=== PATIENT | female | born 1965 | race Caucasian/White ===

== ENCOUNTER 2019-11-21 16:34 | Emergency (ER) | payer BC ==
[2019-11-21] MEDS ORDERED: IPRATROPIUM/ALBUTEROL 0.5-2.5 MG/3 ML AMPUL NEB ONE (16:51)
--- NOTE | 2019-11-21 16:53 | ER Document Report ---
ED Medical Screen (RME) - General Chief Complaint: Chest Pain Stated Complaint: CHEST PAIN,DIZZINESS Time Seen by Provider: 11/21/19 16:46 Primary Care Provider: JACOBO THOMPSON CNM [Primary Care Provider] - Follow up as needed Notes: HPI: 54-year-old female with asthma history also history of high cholesterol presenting for evaluation of multiple complaints today. Patient states over the last 3 weeks she has had episodes of dizziness mostly with movement of the head and neck. No headache. Patient began having sharp episodes of chest discomfort today over the anterior chest without radiation to the neck back arms or shoulders. Does not change with position movement or deep breathing. Patient also has a sensation of tightness in the chest and shortness of breath with difficulty breathing. No fever or recent illness. Patient states that she did notice that she felt slightly "dizzy" while sitting still today as well prompting her to come in I have greeted and performed a rapid initial assessment of this patient. A comprehensive ED assessment and evaluation of the patient, analysis of test results and completion of the medical decision making process will be conducted by additional ED providers PHYSICAL EXAMINATION: GENERAL: Well-appearing, well-nourished and in no acute distress. HEAD: Atraumatic, normocephalic. EYES: sclera anicteric, conjunctiva are normal. ENT: Moist mucous membranes. NECK: Normal range of motion, no bruit LUNGS: Normal work of breathing, wheezing on expiration in all lung [place] HEART: 2+ radial pulses bilaterally, regular rate and rhythm ABD: limited by positioning for exam in triage. EXTREMITIES: no pitting or edema. No cyanosis. NEUROLOGICAL: No focal neurological deficits. Moves all extremities spontaneously and on command. PSYCH: Normal mood, normal affect. SKIN: Warm, Dry, normal turgor, no rashes or lesions noted. - Related Data Allergies/Adverse Reactions: aspirin Allergy (Verified 11/21/19 16:46) Physical Exam - Vital signs Vitals: Temp Pulse Resp BP Pulse Ox 98.2 F 69 18 166/91 H 100 11/21/19 16:44 11/21/19 16:44 11/21/19 16:44 11/21/19 16:44 11/21/19 16:44 Course - Vital Signs Vital signs: Temp Pulse Resp BP Pulse Ox 98.2 F 69 18 166/91 H 100 11/21/19 16:44 11/21/19 16:44 11/21/19 16:44 11/21/19 16:44 11/21/19 16:44 Doctor's Discharge - Discharge Referrals: JACOBO THOMPSON CNM [Primary Care Provider] - Follow up as needed
[2019-11-21 17:13] LABS: INTERNATIONAL RATION (INR) 0.92; PROTHROMBIN TIME 12.3 SEC (11.4-15.4)
[2019-11-21 17:15] LABS: ABSOLUTE BASOPHILS # (AUTO) 0.1 10^3/uL (0.0-0.2); ABSOLUTE EOSINOPHILS # (AUTO) 0.7 10^3/uL (0.0-0.6); ABSOLUTE MONOCYTES (AUTO) 0.5 10^3/uL (0.1-1.4); BASOPHILS % (AUTO) 1.4 % (0-2); EOSINOPHILS % (AUTO) 10.1 % (0-6); HEMATOCRIT 38.7 % (36.0-47.0); HEMOGLOBIN 12.7 g/dL (12.0-15.5); MEAN CORPUSCULAR HEMOGLOBIN 27.9 pg (27.0-33.4); MEAN CORPUSCULAR HGB CONC 32.9 g/dL (32.0-36.0); MEAN CORPUSCULAR VOLUME 85 fl (80-97); MONOCYTES % (AUTO) 6.9 % (3-13); PLATELET COUNT 325 10^3/uL (150-450); RED BLOOD COUNT 4.56 10^6/uL (3.72-5.28); SEGMENTED NEUTROPHILS % (AUTO) 54.6 % (42-78); TOTAL CELLS COUNTED % (AUTO) 100 %; WHITE BLOOD COUNT 7.2 10^3/uL (4.0-10.5)
--- NOTE | 2019-11-21 17:18 | RADIOLOGY REPORT (SQ) ---
EXAM DESCRIPTION: CHEST 2 VIEWS COMPLETED DATE/TIME: 11/21/2019 5:04 pm REASON FOR STUDY: cough COMPARISON: None. EXAM PARAMETERS: NUMBER OF VIEWS: two views TECHNIQUE: Digital Frontal and Lateral radiographic views of the chest acquired. RADIATION DOSE: NA LIMITATIONS: none FINDINGS: LUNGS AND PLEURA: No opacities, masses or pneumothorax. No pleural effusion. MEDIASTINUM AND HILAR STRUCTURES: No masses or contour abnormalities. HEART AND VASCULAR STRUCTURES: Heart normal size. No evidence for failure. BONES: No acute findings. HARDWARE: None in the chest. OTHER: No other significant finding. IMPRESSION: NO ACUTE RADIOGRAPHIC FINDING IN THE CHEST. TECHNICAL DOCUMENTATION: JOB ID: [id number] 2010 [employer]- All Rights Reserved Reading location - IP/workstation name: [email or web address]
[2019-11-21 17:25] LABS: ALBUMIN 4.6 g/dL (3.5-5.0); ALKALINE PHOSPHATASE 86 U/L (38-126); ANION GAP 10 (5-19); ASPARTATE AMINO TRANSFERASE 27 U/L (14-36); BILIRUBIN,DIRECT 0.3 mg/dL (0.0-0.4); BILIRUBIN,TOTAL 0.5 mg/dL (0.2-1.3); BLOOD UREA NITROGEN 21 mg/dL (7-20); CALCIUM 9.7 mg/dL (8.4-10.2); CARBON DIOXIDE 30 mmol/L (22-30); CHLORIDE 97 mmol/L (98-107); GLUCOSE 85 mg/dL (75-110); POTASSIUM 3.9 mmol/L (3.6-5.0); TOTAL PROTEIN 8.4 g/dL (6.3-8.2)
--- NOTE | 2019-11-21 17:26 | EKG REPORT ---
SEVERITY:- NORMAL ECG - SINUS RHYTHM : Confirmed by: Ian Johnson MD 21-Nov-2019 17:26:12
--- NOTE | 2019-11-21 17:38 | RADIOLOGY REPORT (SQ) ---
EXAM DESCRIPTION: CT HEAD WITHOUT COMPLETED DATE/TIME: 11/21/2019 5:23 pm REASON FOR STUDY: dizziness COMPARISON: None. TECHNIQUE: Axial images acquired through the brain without intravenous contrast. Images reviewed wi th bone, brain and subdural windows. Additional sagittal and coronal reconstructions were generated. Images stored on PACS. All CT scanners at this facility use dose modulation, iterative reconstruction, and/or weight based d osing when appropriate to reduce radiation dose to as low as reasonably achievable (ALARA). [facility]: Dose Right [facility]: CareDose [facility]: Dose Right [facility]: Teradose 4D [facility]: Surefire Social RADIATION DOSE: CT Rad equipment meets quality standard of care and radiation dose reduction techniq ues were employed. CTDIvol: 53.2 mGy. DLP: 937 mGy-cm. mGy. LIMITATIONS: None. FINDINGS: VENTRICLES: Normal size and contour. CEREBRUM: No masses. No hemorrhage. No midline shift. No evidence for acute infarction. Normal gra y/white matter differentiation. No areas of low density in the white matter. CEREBELLUM: No masses. No hemorrhage. No alteration of density. No evidence for acute infarction. EXTRAAXIAL SPACES: No fluid collections. No masses. ORBITS AND GLOBE: No intra- or extraconal masses. Normal contour of globe without masses. CALVARIUM: No fracture. PARANASAL SINUSES: Diffuse soft tissue filling the sinuses. SOFT TISSUES: No mass or hematoma. OTHER: No other significant finding. IMPRESSION: NORMAL BRAIN CT WITHOUT CONTRAST. DIFFUSE SINUS DISEASE. EVIDENCE OF ACUTE STROKE: NO. COMMENT: Quality ID # [id number]: Final reports with documentation of one or more dose reduction techniques (e.g., Automated exposure control, adjustment of the mA and/or kV according to patient size, use of iterative reconstruction technique) TECHNICAL DOCUMENTATION: JOB ID: [id number] 2010 [employer]- All Rights Reserved Reading location - IP/workstation name: [email or web address]
[2019-11-21] MEDS ORDERED: MECLIZINE HCL 25 MG TABLET PO ONE (19:24)
--- NOTE | 2019-11-21 19:26 | ER Document Report ---
ED General - General Chief Complaint: Chest Pain > 30 Stated Complaint: CHEST PAIN,DIZZINESS Time Seen by Provider: 11/21/19 16:46 Primary Care Provider: JACOBO THOMPSON CNM [CERTIFIED NURSE SUPER[employer]] - Follow up as needed Mode of Arrival: Ambulatory Information source: Patient Notes: This 54-year-old female patient comes emergency room complaining of intermittent dizziness made worse with head turning for the past 2 weeks. She has also been feeling sharp pains in her heart region. And has wheezing with shortness of breath. She noted today that she seemed to have a hard time breathing and it was more in her throat. She did go to an urgent care today and was found to have elevated blood pressure so she was sent to the emergency room. The patient uses an albuterol inhaler at least twice daily regularly for her asthma. She did receive a DuoNeb breathing treatment ordered at triage. She states that her breathing does feel better after that treatment. Patient reports she had been on Advair in the distant past, but does not use any medication like that now for her chronic asthma. She does not have a smoking history and no reason to suspect COPD. TRAVEL OUTSIDE OF THE [place] IN LAST 30 DAYS: No - Related Data Allergies/Adverse Reactions: aspirin Allergy (Verified 11/21/19 16:46) Past Medical History - General Information source: Patient - Social History Smoking Status: Never Smoker Cigarette use (# per day): No Chew tobacco use (# tins/day): No Smoking Education Provided: No Frequency of alcohol use: None Drug Abuse: None Lives with: Spouse/Significant other Family History: Hypertension Patient has suicidal ideation: No Patient has homicidal ideation: No Pulmonary Medical History: Reports: Hx Asthma Past Surgical History: Reports: Hx Abdominal Surgery - Abdominoplasty "tummy tuck"., Other - Sinus cleanout surgery and nasal polyp removal over 10 years ago. Review of Systems - Review of Systems Constitutional: No symptoms reported EENT: Sinus pressure - Some pain in the frontal ethmoid regions and the posterior head most likely due to the sphenoid sinuses, Other - Dry eyes Cardiovascular: See HPI Respiratory: See HPI, Wheezing Gastrointestinal: No symptoms reported Genitourinary: No symptoms reported Female Genitourinary: Post menopausal Musculoskeletal: No symptoms reported Skin: No symptoms reported Hematologic/Lymphatic: No symptoms reported Neurological/Psychological: See HPI - Head movement provoked dizziness Physical Exam - Vital signs Vitals: Temp Pulse Resp BP Pulse Ox 98.2 F 69 18 166/91 H 100 11/21/19 16:44 11/21/19 16:44 11/21/19 16:44 11/21/19 16:44 11/21/19 16:44 Interpretation: Hypertensive - General General appearance: Appears well In distress: None - HEENT Head: Normocephalic, Atraumatic Eyes: Normal Pupils: PERRL Nasal: Other - There does seem to be some nasal and sinus congestion with her voice suggesting sinus congestion. Pharynx: Normal Neck: Normal. No: Carotid bruit - Respiratory Respiratory status: No respiratory distress Breath sounds: Other - Faint expiratory wheeze and rhonchi with forced cough. She did just receive a DuoNeb treatment prior to being seen. Chest palpation: Tender - There is some tenderness to palpate the right and left anterior chest lee. - Cardiovascular Rhythm: Regular Heart sounds: Normal auscultation Murmur: No - Abdominal Inspection: Normal Bowel sounds: Normal Tenderness: Nontender - Back Back: Normal - Extremities General upper extremity: Normal inspection General lower extremity: Normal inspection - Neurological Neuro grossly intact: Yes Notes: There is no lateral gaze nystagmus noted. When the patient sits up and looks up and down rapidly and left right quickly, she does notice worsening of her dizziness symptoms. - Psychological Associated symptoms: Normal affect, Normal mood - Skin Skin Temperature: Warm Skin Moisture: Dry Skin Color: Normal Course - Re-evaluation Re-evalutation: 11/21/19 20:57 On reevaluation, the dizziness is only slightly improved, since she did not have nystagmus with rapid head movement, I suspect the dizzy sensation may be related to her sinus disease. She is agreeable to starting back with the Advair Diskus so that she does not have to use her rescue inhaler so much. She plans to call her ear nose and throat surgeon tomorrow to schedule an appointment for evaluation of her diffuse sinus disease. At this time the blood pressure is 135/70 which is at the patient's baseline. She does check her pressures at home frequently. - Vital Signs Vital signs: Temp Pulse Resp BP Pulse Ox 98.2 F 69 18 166/91 H 100 11/21/19 16:44 11/21/19 16:44 03/05/20 16:44 11/21/19 16:44 11/21/19 16:44 - Laboratory Result Diagrams: 11/21/19 16:55 11/21/19 16:55 Laboratory results interpreted by me: 11/21/19 11/21/19 16:55 16:55 Eos % (Auto) 10.1 H Absolute Eos (auto) 0.7 H Chloride 97 L BUN 21 H Total Protein 8.4 H - Diagnostic Test Radiology reviewed: Image reviewed, Reports reviewed - Chest x-ray is unremarkable. CT scan of the head shows diffuse sinus disease, otherwise unr emarkable. - EKG Interpretation by Me EKG shows normal: Sinus rhythm, [place], Intervals, QRS Complexes, ST-T Waves Rate: Normal - 73 Rhythm: NSR Discharge - Discharge Clinical Impression: Paranasal sinus disease, Dizziness, Chest wall pain Condition: Stable Disposition: HOME, SELF-CARE Additional Instructions: Your EKG, chest x-ray, and lab work were all normal. CT scan of your head did show diffuse sinus disease as we discussed. Start using the Advair Diskus as prescribed. It will take up to 2 weeks before you get maximum benefit. Take the CD of your head CT showing the diffuse sinus disease to see your ear nose and throat doctor. Follow-up with your primary care provider for further evaluation of your asthma management. RETURN TO THE EMERGENCY ROOM IF ANY NEW OR WORSENING SYMPTOMS. Prescriptions: Advair Discus 250-50 1 inhaler IH Q12 30 Days #1 unit Referrals: JACOBO THOMPSON CNM [CERTIFIED NURSE SUPERVISOR [employer]] - Follow up as needed
[2019-11-21 21:05] VITALS: BP 142/84
== END 2019-11-21 21:30 | disposition home or self-care (01) ==
LOC: ER 16:34
DX: J32.9 Chronic sinusitis, unspecified (principal); J45.909 Unspecified asthma, uncomplicated; R07.89 Other chest pain; R42 Dizziness and giddiness; Z79.899 Other long term (current) drug therapy; Z88.8 Allergy status to other drugs, medicaments and biological substances
CPT/HCPCS: 93005; 94640; 99285; 36415; 82550; 85025; 85610; 80053; 84484; 71046; 70450; 93010; J7620

== ENCOUNTER → 2020-01-01 | Outpatient (CLI) | payer BC ==
--- NOTE | 2020-01-02 10:29 | XCELERA REPORT ---
[address] [address] Transthoracic Echocardiogram Report Name: ROLANDA PETERSON Age: 54 yrs Gender: Female : 1965 Patient Status: Outpatient Patient Location: Study Date: 01/01/2020 07:20 AM History: CAD Height: 64 in Weight: 145 lb BSA: 1.7 m2 Procedure: A complete two-dimensional transthoracic echocardiogram was performed (2D, M-mode, spectral and color flow Doppler). The study was technically difficult with many images being suboptimal in quality. Reason For Study: ISCHEMIC HEART DISEASE Previous Evaluation: No previous studies were available. History: HTN. Ordering Physician: YELENA BERGER Performed By: Carrie Turner Interpretation Summary Left ventricular systolic function is low normal. The Ejection Fraction estimate is 50-55% The right ventricle is normal in size and function. There is a trace amount of mitral regurgitation There is no aortic valve stenosis There is a mild amount of tricuspid regurgitation There is no pericardial effusion. MMode/2D Measurements & Calculations RVDd: 2.0 cm LVIDd: 4.6 cm FS: 24.5 % Ao root diam: 3.0 cm IVSd: 0.82 cm LVIDs: 3.5 cm EDV(Teich): 98.5 ml Ao root area: 7.2 cm2 LVPWd: 0.98 cm ESV(Teich): 50.6 ml EF(Teich): 48.6 % Doppler Measurements & Calculations MV E max fariba: MV dec slope: Ao V2 max: LV V1 max P.2 cm/sec 337.0 cm/sec2 133.5 cm/sec 4.4 mmHg MV A max fariba: MV dec time: 0.20 sec Ao max PG: LV V1 max: 92.3 cm/sec 7.1 mmHg 104.8 cm/sec MV E/A: 0.73 PA V2 max: TR max fariba: 92.5 cm/sec 221.8 cm/sec PA max P.4 mmHgTR max P.7 mmHg Left Ventricle The left ventricle is grossly normal size. There is borderline concentric left ventricular hypertrophy. Left ventricular systolic function is low normal. The Ejection Fraction estimate is 50-55%. Doppler measurements suggest impaired left ventricular relaxation, which is associated with grade I/IV or mild diastolic dysfunction. Regional wall motion abnormalities cannot be excluded due to limited visualization. Right Ventricle The right ventricle is normal in size and function. Atria The right atrium is normal. The left atrial size is normal. The interatrial septum is intact with no evidence for an atrial septal defect. Mitral Valve The mitral valve is grossly normal. There is a trace amount of mitral regurgitation. Aortic Valve The aortic valve opens well. The aortic valve is trileaflet. The aortic valve is normal in structure and function. There is no aortic valve stenosis. No aortic regurgitation is present. Tricuspid Valve The tricuspid valve is not well visualized secondary to technical limitations. There is a mild amount of tricuspid regurgitation. Right ventricular systolic pressure is estimated to be within upper limit of normal. Pulmonic Valve The pulmonic valve is not well visualized. There is a trace amount of pulmonic regurgitation. Great Vessels The aortic root is normal size. The inferior vena cava appeared normal. Effusions There is no pericardial effusion. : YELENA BERGER Anil
== END ==
LOC: SP 07:54
PROVIDERS: ATTEND Internal Medicine
DX: E78.5 Hyperlipidemia, unspecified (principal); I25.9 Chronic ischemic heart disease, unspecified
CPT/HCPCS: 93306

== ENCOUNTER → 2020-01-20 | Outpatient (CLI) | payer BC ==
--- NOTE | 2020-01-20 12:54 | DRAGON STRESS TEST REPORT ---
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 We decided to proceed with exercise nuclear stress test Procedure The patient presented to the stress lab. Initially rest images were obtained according to standard protocol after the injection of 10.84 millicurie technetium 99m sestamibi. Subsequently the patient underwent exercise nuclear stress test according to Kurt protocol. The patient exercised on the treadmill according to Kurt protocol for a total of 11 minutes and 51 seconds achieving a maximum heart rate of 142 bpm which was 85% of maximum predicted of 167 bpm. Her maximum workload was 13.4 METS. Her presenting EKG showed sinus rhythm at 85 bpm. Her initial blood pressure was 105/70 mmHg. The patient had appropriate increment in heart rate and blood pressure with exercise. At peak exercise the patient was injected with 32.6 millicuries of technetium 99m sestamibi. She continued to run on the treadmill for another 60 seconds. The exercise EKG was uninterpretable for ischemia due to movement artifact. The recovery EKG did not reveal any evidence of myocardial ischemia. The patient tolerated the exercise well and did not report chest pain or dyspnea. The test was terminated on account of patient fatigue and her having achieved target heart rate. The patient's EKG and vital signs were monitored throughout the procedure. After a period of rest, stress images were obtained according to standard protocol. Raw as well as processed rest and stress images were reviewed. There was mild gut uptake which did not interfere with the study. The rest and stress images show uniform uptake of radioactive isotope without any fixed or reversible defects to suggest myocardial ischemia or myocardial infarction. There is normal contractility post-rest. The calculated ejection fraction is 62 %. The TID ratio is 0.92. Conclusion The exercise EKG is uninterpretable for myocardial ischemia due to significant motion artifact and baseline wander. There is no scintigraphic evidence for myocardial ischemia or myocardial infarction. Good exercise tolerance. Normal heart rate and blood pressure response to exercise. There is normal contractility post stress. Gated left ventricular ejection fraction is estimated at 62%. MTDD
== END ==
LOC: RAD 07:15
PROVIDERS: ATTEND Internal Medicine
DX: E78.5 Hyperlipidemia, unspecified (principal); I10 Essential (primary) hypertension; I25.9 Chronic ischemic heart disease, unspecified
CPT/HCPCS: 93017; 78452; A9500; Q9969

== ENCOUNTER → 2020-06-02 | Outpatient (CLI) | payer BC ==
[2020-06-02 16:55] LABS: ABSOLUTE BASOPHILS # (AUTO) 0.1 10^3/uL (0.0-0.2); ABSOLUTE LYMPHOCYTES (AUTO) 2.2 10^3/uL (0.5-4.7); ABSOLUTE MONOCYTES (AUTO) 0.9 10^3/uL (0.1-1.4); ABSOLUTE NEUT (AUTO) 5.4 10^3/uL (1.7-8.2); BASOPHILS % (AUTO) 1.2 % (0-2); EOSINOPHILS % (AUTO) 10.7 % (0-6); HEMATOCRIT 36.1 % (36.0-47.0); HEMOGLOBIN 12.3 g/dL (12.0-15.5); LYMPHOCYTES % (AUTO) 22.9 % (13-45); MEAN CORPUSCULAR HEMOGLOBIN 28.4 pg (27.0-33.4); MEAN CORPUSCULAR HGB CONC 33.9 g/dL (32.0-36.0); MEAN CORPUSCULAR VOLUME 84 fl (80-97); PLATELET COUNT 386 10^3/uL (150-450); RED BLOOD COUNT 4.32 10^6/uL (3.72-5.28); SEGMENTED NEUTROPHILS % (AUTO) 56.2 % (42-78); TOTAL CELLS COUNTED % (AUTO) 100 %; WHITE BLOOD COUNT 9.6 10^3/uL (4.0-10.5)
[2020-06-02 17:38] LABS: C-REACTIVE PROTEIN 7.9 mg/L (<10.0); URIC ACID 4.5 mg/dL (2.5-7.5)
[2020-06-02 17:57] LABS: ERYTHROCYTE SEDIMENTATION RATE 39 mm/hr (0-30)
== END ==
LOC: OD 15:46
PROVIDERS: ATTEND Physician Assistant
DX: M79.641 Pain in right hand (principal)
CPT/HCPCS: 36415; 84443; 84550; 85025; 85652; 86038; 86140; 86200; 86431